=== PATIENT | male | born 1970 | race Caucasian/White ===

== ENCOUNTER 2019-10-22 16:33 | Emergency (ER) | payer OTHER ==
[2019-10-22 16:45] VITALS: BP 128/81; PULSE 67; O2SAT 97
[2019-10-22] MEDS ORDERED: TENIVAC VIAL IM ONE (16:51)
[2019-10-22] MEDS ORDERED: TYLENOL EXTRA STRENGTH 500 MG PO STA (16:52)
[2019-10-22] MEDS ORDERED: MOTRIN 600 MG PO ONE (16:52)
[2019-10-22] MEDS ORDERED: MOTRIN 600 MG ONE (17:00)
[2019-10-22] MEDS ORDERED: TYLENOL EXTRA STRENGTH 500 MG ONE (17:00)
--- NOTE | 2019-10-22 17:00 | ERPHSYRPT ---
- History of Present Illness Time Seen by Provider: 10/22/19 16:34 Source: patient Exam Limitations: no limitations Patient Subjective Stated Complaint: pt comes in with c/o finger laceration to his left index finger. pt states he was using a saw and it slipped. lac is actively bleeding a moderate amout but bleeding is controlled. pt skin is otherwise pink, warm and dry. Triage Nursing Assessment: see above Physician History: Patient has a laceration to his left index finger. This occurred just prior to arrival. Patient took a saw to the end of his finger. Location: left index finger Quality: sharp Radiation: none Severity: moderate Duration: just [employer] Timing: after injury Modifying factors/associated signs and symptoms: none tried Allergies/Adverse Reactions: No Known Drug Allergies Allergy (Verified 05/20/16 06:15) Home Medications: Diclofenac Sodium 75 mg PO Q12H PRN PRN 05/20/16 [History] Hx Tetanus, Diphtheria Vaccination/Date Given: No Hx Influenza Vaccination/Date Given: No Hx Pneumococcal Vaccination/Date Given: No Travel Risk - International Travel Have you traveled outside of the country in past 3 weeks: No Have you or anyone close to you been diagnosed with or: No Do your reside in a community with a known COVID-19 case?: Yes If Yes where:: [place] - Coronavirus Screening Has patient experienced Coronavirus symptoms: No - Review of Systems Constitutional: No Fever, No Chills Eyes: No Symptoms Ears, Nose, & Throat: No Symptoms Respiratory: No Cough, No Dyspnea Cardiac: No Chest Pain, No Edema, No Syncope Abdominal/Gastrointestinal: No Abdominal Pain, No Nausea, No Vomiting, No Diarrhea Genitourinary Symptoms: No Dysuria Musculoskeletal: Other (left index finger laceration ), No Back Pain, No Neck Pain Skin: No Rash Neurological: No Dizziness, No Focal Weakness, No Sensory Changes Psychological: No Symptoms Endocrine: No Symptoms All Other Systems: Reviewed and Negative - Past Medical History Pertinent Past Medical History: Yes Neurological History: No Pertinent History Cardiac History: Hypertension Respiratory History: No Pertinent History Endocrine Medical History: No Pertinent History Musculoskeletal History: No Pertinent History GI Medical History: No Pertinent History History: No Pertinent History Psycho-Social History: No Pertinent History Male Reproductive Disorders: No Pertinent History - Past Surgical History Past Surgical History: Yes Neuro Surgical History: No Pertinent History Cardiac: No Pertinent History Respiratory: No Pertinent History Gastrointestinal: No Pertinent History Genitourinary: No Pertinent History Musculoskeletal: Other Male Surgical History: No Pertinent History Other Surgical History: repair of stomach lining--due to 'working out' - Social History Smoking Status: Never smoker Exposure to second hand smoke: No Alcohol Use: None Drug Use: none Patient Lives Alone: No Significant Family History: no pertinent family hx - Nursing Vital Signs Nursing Vital Signs: Initial Vital Signs Pulse Rate 67 10/22/19 16:39 Respiratory Rate 18 10/22/19 16:39 Blood Pressure 128/81 10/22/19 16:39 O2 Sat by Pulse Oximetry 97 10/22/19 16:39 Pain Scale Pain Intensity 6 - Physical Exam General Appearance: no apparent distress, alert Eye Exam: PERRL/EOMI, eyes nml inspection Ears, Nose, Throat Exam: normal ENT inspection, TMs normal, pharynx normal, moist mucous membranes Neck Exam: normal inspection, non-tender, supple, full range of motion Respiratory Exam: normal breath sounds, lungs clear, No respiratory distress Cardiovascular Exam: regular rate/rhythm, normal heart sounds, normal peripheral pulses Gastrointestinal/Abdomen Exam: soft, normal bowel sounds, No tenderness, No mass Back Exam: normal inspection, normal range of motion, No CVA tenderness, No vertebral tenderness Extremity Exam: normal inspection, normal range of motion, pelvis stable Neurologic Exam: alert, oriented x 3, cooperative, normal mood/affect, nml cerebellar function, nml station & gait, sensation nml, No motor deficits Skin Exam: normal color, warm, dry, No rash Lymphatic Exam: No adenopathy SpO2 Interpretation: normal SpO2: 97 Comments: 10/22/19 16:56 Obvious deformity to distal left index finger. The laceration extends through the nailbed. Extensive other soft tissue injury throughout the tip of the finger. sensation intact, 2+ capillary refill, 5 out of 5 strength, without obvious tendon laceration. Limited range of motion due to pain and injury. Compartments are soft, nontender. Procedures - Laceration/Wound Repair Finger Wound Location: Left Wound Length (cm): 3.0 Wound's Depth, Shape: irregular Wound Explored: clean Irrigated: Yes Analiicleyazmin Prep: Yes Anesthesia: digital block, 1% lidocaine w/ Epi Wound Debrided: minimal Wound Repaired With: sutures Suture Size/Type: 4-0, ethilon Number of Sutures: 3 Layer Closure?: No Sterile Dressing Applied?: Yes Splint Applied?: Yes Progress: 10/22/19 17:50 Wound was loosely approximated secondary to the open fracture. Nailbed was mostly lost. Wrapped in Vaseline and gauze. Placed in a splint. Ordered Tests: Active Orders 24 hr Category Date Time Status FINGER(S) Stat Exams 10/22/19 17:07 Taken Medication Summary Discontinued Medications Generic Name Dose Route Start Last Admin Trade Name Niko PRN Reason Stop Dose Admin Acetaminophen 1,000 mg 10/22/19 16:52 10/22/19 17:03 Tylenol Extra Strength 500 Mg PO 10/22/19 16:53 1,000 mg STAT STA Administration Acetaminophen Confirm 10/22/19 17:00 Tylenol Extra Strength 500 Mg Administered 10/22/19 17:01 Dose 1,000 mg .ROUTE .STK-MED ONE Diphtheria/Tetanus/Acell Pertussis Confirm 10/22/19 17:01 Adacel Vial Administered 10/22/19 17:02 Dose 0.5 ml IM .STK-MED ONE Ibuprofen 600 mg 10/22/19 16:52 10/22/19 17:02 Motrin 600 Mg PO 10/22/19 16:53 600 mg STAT ONE Administration Ibuprofen Confirm 10/22/19 17:00 Motrin 600 Mg Administered 10/22/19 17:01 Dose 600 mg .ROUTE .STK-MED ONE Tetanus/Diphtheria Toxoids Adsorbed 0.5 ml 10/22/19 16:51 10/22/19 17:06 Tenivac Vial IM 10/22/19 16:52 Not Given .ONCE ONE - Progress Progress: improved Progress Note: 10/22/19 17:00 We will update tetanus shot, give Tylenol and ibuprofen. X-ray. 10/22/19 17:02 X-ray demonstrates distal phalanx fracture my read. 10/22/19 17:37 Patient has an open fracture. We closed it loosely to the best of our ability. However there was a degloving component of the injury. Therefore unable to fully close it. Patient lost three quarters of his nail bed due to the injury. Therefore, I did tell him his nail may never grow back. Patient will need close follow-up with orthopedic surgery. We will place him on Keflex for antibiotic treatment. We did wash the wound very thoroughly with soap and water. We set patient up with orthopedic referral tomorrow morning. He will see the orthopedic surgeons tomorrow morning between 8 AM and 10 AM for walk-in clinic. States he will not have any difficulty getting to the clinic appointment. Return here for any new or changing symptoms. - Departure Departure Disposition: Home Clinical Impression: Open fracture, Phalanx, distal fracture of finger, Laceration of finger Condition: Stable Critical Care Time: No Referrals: KIMBERLY EVANGELISTA [Primary Care Provider] - [facility]-Ortho M-[id number] Instructions: Finger Fracture (DC) Prescriptions: Cephalexin Mh 500 mg [Keflex 500 mg] 500 mg PO QID 7 Days #28 capsule
[2019-10-22] MEDS ORDERED: Adacel Vial IM ONE (17:01)
--- NOTE | 2019-10-22 19:05 | XRAY ---
Indication: Saw injury. Comparison: None 3 views of the left 2nd finger demonstrates nondisplaced distal phalanx/tuft comminuted fracture with soft tissue swelling and laceration. No other bony, articular, or soft tissue abnormalities.
== END 2019-10-22 17:41 | disposition home or self-care (01) ==
LOC: ED 16:33
DX: S62.631B Displaced fracture of distal phalanx of left index finger, initial encounter for open fracture (principal); W45.8XXA Other foreign body or object entering through skin, initial encounter; W27.8XXA Contact with other nonpowered hand tool, initial encounter; Y93.89 Activity, other specified; Y92.9 Unspecified place or not applicable; S61.211A Laceration without foreign body of left index finger without damage to nail, initial encounter
CPT/HCPCS: 12002; 73140; 90471; 90715; 99284; A9270-GY